=== PATIENT | female | born 1980 | race Caucasian/White ===

== ENCOUNTER → 2024-12-09 | Outpatient (CLI) | payer BC ==
[~2024-12-09] MED LIST: AUGMENTIN 500 M1 TAB PO; BACTRIM DS 8001 TA1 PO; CEFADROXIL500 M1 PO; HYDROCODONE BIT1 T11 PO; ZOFRAN4 MG PO
== END | disposition home or self-care (01) ==
LOC: MAMMO 02:44
PROVIDERS: ATTEND Family Medicine
DX: R92.343 Mammographic extreme density, bilateral breasts (principal)